=== PATIENT | male | born 1950 | race Hispanic/Latino ===

== ENCOUNTER → 2021-07-17 | Day surgery (SDC) | payer MEDICARE ==
[~2021-07-17] MED LIST: AMLODIPINE BESYL5 MG PO; ASPIRIN81 MG PO; HYDROCHLOROTHIA25 MG PO; LOSARTAN POTASS25 MG PO; OR PHACO EYE KIT ONE; PREOP PHACO EYE KIT ONE
[2021-07-17 15:56] VITALS: BP 120/69
== END | disposition home or self-care (01) ==
LOC: OR 11:39
PROVIDERS: ATTEND Ophthalmology
DX: H25.11 Age-related nuclear cataract, right eye (principal); I10 Essential (primary) hypertension; Z01.812 Encounter for preprocedural laboratory examination; Z20.822 Contact with and (suspected) exposure to COVID-19; Z79.82 Long term (current) use of aspirin
CPT/HCPCS: 66984; U0002; V2632

== ENCOUNTER → 2021-07-31 | Day surgery (SDC) | payer MEDICARE ==
[~2021-07-31] MED LIST changes: -OR PHACO EYE KIT ONE; -PREOP PHACO EYE KIT ONE
[2021-07-31 12:30] VITALS: BP 137/68
== END | disposition home or self-care (01) ==
LOC: OR 06:56
PROVIDERS: ATTEND Ophthalmology
DX: H25.12 Age-related nuclear cataract, left eye (principal); I10 Essential (primary) hypertension; E78.5 Hyperlipidemia, unspecified; Z01.812 Encounter for preprocedural laboratory examination; Z20.822 Contact with and (suspected) exposure to COVID-19; Z79.82 Long term (current) use of aspirin
CPT/HCPCS: 66984; U0002

== ENCOUNTER → 2022-06-06 | Outpatient (CLI) | payer OTHER ==
[~2022-06-06] MED LIST changes: +FLOMAX0.4 MG PO; +METOPROLOL TARTRATE INJ 1 MG/ML VIAL ONE; +NITROGLYCERIN 0.4 MG SUBL ONE; +ONDANSETRON ODT4 MG PO; +ULTRAM 50MG50 MG PO
[2022-06-06 08:52] LABS: CREATININE, SERUM 0.82 mg/dL (0.72-1.25)
== END ==
LOC: CT 08:05
PROVIDERS: ATTEND Internal Medicine Cardiovascular Disease
DX: R07.9 Chest pain, unspecified (principal); R94.31 Abnormal electrocardiogram [ECG] [EKG]
CPT/HCPCS: 36415; 75574; 82565; 84520

== ENCOUNTER 2022-06-12 01:30 | Inpatient (IN) | payer MEDICARE, OTHER ==
[2022-06-12] VITALS (7 sets, daily range): BP systolic 119–131; BP diastolic 54–63
[~2022-06-12] VITALS: Ht 165.1 cm; Wt 70.3 kg
[~2022-06-12 01:30] MED LIST changes: -FLOMAX0.4 MG PO; -METOPROLOL TARTRATE INJ 1 MG/ML VIAL ONE; -NITROGLYCERIN 0.4 MG SUBL ONE; -ONDANSETRON ODT4 MG PO; -ULTRAM 50MG50 MG PO
[2022-06-12 01:55] LABS: BASOPHILS % 0.5 % (0.0-1.0); EOSINOPHILS # (AUTO) 0.1 (0.0-0.4); EOSINOPHILS % 0.8 % (0.0-6.0); HEMATOCRIT 39.4 % (38.2-49.6); HEMOGLOBIN 13.2 g/dL (14.0-18.0); LYMPHOCYTES # (AUTO) 0.9 (1.0-3.2); MEAN CORPUSCULAR HEMOGLOBIN 30.8 pg (28-32); MEAN CORPUSCULAR HGB CONC 33.5 g/dL (31-35); MEAN CORPUSCULAR VOLUME 91.8 fL (81-99); MONOCYTES # (AUTO) 0.6 (0.2-0.8); MONOCYTES % 9.4 % (4.4-11.3); NEUTROPHILS # (AUTO) 4.6 (2.1-6.9); PLATELET COUNT 213 x10e3/uL (140-360); RED BLOOD COUNT 4.29 x10e6/uL (4.3-5.7); RED CELL DISTRIBUTION WIDTH 12.9 % (11.7-14.4)
[2022-06-12 01:59] LABS: CLARITY,URINE SL CLOUDY (CLEAR); COLOR,URINE YELLOW (YELLOW); KETONES,URINE NEGATIVE (NEGATIVE); LEUKOCYTE ESTERASE ,URINE NEGATIVE (NEGATIVE); NITRITE,URINE NEGATIVE (NEGATIVE); PROTEIN,URINE DIPSTICK TRACE (NEGATIVE); URINE UROBILINOGEN 0.2 mg/dL (0.2 - 1)
[2022-06-12 02:03] LABS: BACTERIA,URINE FEW /HPF; EPITHELIAL CELLS,URINE RARE /LPF; WBC,URINE (MAN) 0-5 /HPF (0-5); YEAST,URINE FEW
[2022-06-12 02:13] LABS: ALBUMIN 3.6 g/dL (3.5-5.0); ALBUMIN/GLOBULIN RATIO 0.7 (0.8-2.0); CALCIUM 9.9 mg/dL (8.4-10.2); CREATININE, SERUM 1.34 mg/dL (0.72-1.25)
[2022-06-12] MEDS ORDERED: IOPAMIDOL 300MG/ML 100 ML INFUS..BTL IV ONE (02:53)
[2022-06-12] MEDS ORDERED: ULTRAM 50MG50 MG PO (03:30)
[2022-06-12] MEDS ORDERED: FLOMAX0.4 MG PO (03:30)
[2022-06-12] MEDS ORDERED: ONDANSETRON ODT4 MG PO (03:30)
[2022-06-12] MEDS ORDERED: Morphine 4mg INJECTION 4 MG/ML INJ IV PRN (03:45)
[2022-06-12] MEDS ORDERED: ONDANSETRON HCL INJ 2MG/ML 2ML 2 MG/ML VIAL IV PRN (03:45)
[2022-06-12] MEDS: SODIUM CHLORIDE 0.9% 1000ML 1,000 ML IV SCH ×3 (03:58→23:54)
[2022-06-12] MEDS ORDERED: ONDANSETRON HCL INJ 2MG/ML 2ML 2 MG/ML VIAL ONE ×2 (04:07→12:46)
[2022-06-12] MEDS ORDERED: SODIUM CHLORIDE 0.9% 1000ML 1,000 ML ONE (04:07)
[2022-06-12] MEDS ORDERED: Morphine 4mg INJECTION 4 MG/ML INJ ONE (04:07)
[2022-06-12] MEDS ORDERED: HYDRALAZINE HCL 20 MG/ML VIAL IV PRN (08:00)
[2022-06-12] MEDS ORDERED: KETOROLAC TROMETHAMINE 30 MG/ML VIAL ONE (12:46)
[2022-06-12] MEDS ORDERED: DEXAMETHASONE SOD PHOS INJ 4 MG/ML SDV ONE (12:46)
[2022-06-12] MEDS ORDERED: ROCURONIUM BROMIDE 10 MG/ML 5ML VIAL IV ONE (12:46)
[2022-06-12] MEDS ORDERED: PROPOFOL IV EMULSION 10 MG/ML 20 ML VIAL ONE (12:46)
[2022-06-12] MEDS ORDERED: LIDOCAINE HCL 2% LOCAL INJ 5 ML SDV VIAL INJ ONE (12:46)
[2022-06-12] MEDS ORDERED: SEVOFLURANE INHAL SOLN 250 ML PEN BTL ONE (12:46)
[2022-06-12] MEDS ORDERED: POVIDONE IODINE 0.05% 0.05 % ML PO ONE (12:46)
[2022-06-12] MEDS ORDERED: ATROPINE SULFATE 1 MG/ML VIAL ONE (12:46)
[2022-06-12] MEDS ORDERED: NEOSTIGMINE 1 MG/ML 10ML VIAL ONE (12:46)
[2022-06-12] MEDS ORDERED: MIDAZOLAM HCL 2 MG/2 ML VIAL ONE (13:11)
[2022-06-12] MEDS ORDERED: FENTANYL CITRATE/PF 100MCG/2 ML INJ ONE (13:11)
[2022-06-12] MEDS ORDERED: BUPIVACAINE 0.25% 30ML SDV ONE (18:22)
[2022-06-12] MEDS ORDERED: LIDOCAINE 1% W/EPINEPHRINE 20 ML VIAL ONE (18:22)
[2022-06-12] MEDS ORDERED: HYDROCODONE/APAP 7.5MG-325MG 1 EA TAB PO PRN (19:45)
[2022-06-13] VITALS (7 sets, daily range): BP systolic 117–145; BP diastolic 49–73
[2022-06-13 04:46] LABS: BASOPHILS % 0.3 % (0.0-1.0); HEMATOCRIT 38.7 % (38.2-49.6); HEMOGLOBIN 12.6 g/dL (14.0-18.0); LYMPHOCYTES # (AUTO) 0.5 (1.0-3.2); LYMPHOCYTES % 7.9 % (18.0-39.1); MEAN CORPUSCULAR HEMOGLOBIN 30.7 pg (28-32); MEAN CORPUSCULAR HGB CONC 32.6 g/dL (31-35); MEAN CORPUSCULAR VOLUME 94.2 fL (81-99); MONOCYTES # (AUTO) 0.1 (0.2-0.8); MONOCYTES % 1.9 % (4.4-11.3); NEUTROPHILS % 88.6 % (38.7-80.0); PLATELET COUNT 197 x10e3/uL (140-360); RED BLOOD COUNT 4.11 x10e6/uL (4.3-5.7)
[2022-06-13 05:09] LABS: ALBUMIN 2.9 g/dL (3.5-5.0); ALBUMIN/GLOBULIN RATIO 0.7 (0.8-2.0); ANION GAP 17.3 mmol/L (8-16); CALCIUM 8.7 mg/dL (8.4-10.2); CREATININE, SERUM 0.83 mg/dL (0.72-1.25); POTASSIUM 4.3 mmol/L (3.5-5.1)
[2022-06-13] MEDS: SODIUM CHLORIDE 0.9% 1000ML 1,000 ML IV SCH ×2 (09:47→18:45)
[2022-06-14 00:16] VITALS: BP 125/61
[2022-06-14] MEDS: SODIUM CHLORIDE 0.9% 1000ML 1,000 ML IV SCH ×2 (02:31→13:01)
[2022-06-14 04:54] VITALS: BP 136/65
[2022-06-14 05:00] LABS: ANION GAP 12.7 mmol/L (8-16); CALCIUM 7.9 mg/dL (8.4-10.2); CREATININE, SERUM 0.7 mg/dL (0.72-1.25); POTASSIUM 3.7 mmol/L (3.5-5.1)
[2022-06-14 08:25] VITALS: BP 145/63
[2022-06-14 09:18] VITALS: BP 145/63
[2022-06-14 11:35] VITALS: BP 144/63
[2022-06-14 16:33] VITALS: BP 138/73
== END 2022-06-14 17:35 | disposition home or self-care (01) | DRG 342 ==
LOC: ER 01:35 → ERHOLD 03:38 → MED/SURG 07:30
PROVIDERS: ADMIT Internal Medicine; ATTEND Internal Medicine
PROC: 0DTJ4ZZ Resection of Appendix, Percutaneous Endoscopic Approach (ICD-10-PCS; principal; 2022-06-12 18:27)
DX: K35.80 Unspecified acute appendicitis (principal); N13.2 Hydronephrosis with renal and ureteral calculous obstruction; N17.9 Acute kidney failure, unspecified; N50.0 Atrophy of testis; R31.29 Other microscopic hematuria; Z20.822 Contact with and (suspected) exposure to COVID-19; D64.9 Anemia, unspecified; I10 Essential (primary) hypertension
CPT/HCPCS: 36415; 74176; 74177; 80048; 80053; 81001; 83970; 84550; 85025; 87086; 88304; 94799; 99284; J0461; J1100; J1885; J2001; J2250; J2270; J2405; J2543; J2710; J3010; J7030; Q9967